=== PATIENT | male | born 1940 | race Caucasian/White ===

== ENCOUNTER 2024-02-13 15:04 | Emergency (ER) | payer OTHER, SELFPAY ==
[2024-02-13 15:21] VITALS: BP 113/76
--- NOTE | 2024-02-13 15:24 | ED.GENMED ---
ED Provider Triage
<Emma Marte PA-C - Last Filed: 02/13/24 18:58>
-
Patient seen by provider in Triage?: Seen in Triage
Attestation: A medical screening examination has been initiated by a qualified medical provider. Based on the assessment performed at this time, it has been determined that an emergent medical condition may exist and the patient has been informed
that further medical evaluation and possible additional diagnostic testing may be needed.
HPI: 83yoM here for chest pain. L lower chest pain x several days. Patient think it's a muscle strain. Hx of CAD s/p PCI.
GENERAL: Alert , in no apparent distress
EYE: No visual abnormalities.
NECK: Trachea midline
ENT: No visible abnormalities.
LUNGS: No acute respiratory distress
NEUROLOGICAL: Alert and oriented
SKIN: Skin intact. No visible changes.
MUSCULOSKELETAL: Moving extremities normally
PSYCH: Normal and appropriate interaction.
This is a medical evaluation conducted in person to initiate diagnostic evaluation and provide initial therapeutics. Please see further documentation by the treating clinician.
Cardiac labs, EKG, and CXR ordered.
History of Present Illness
<Emma Marte PA-C - Last Filed: 02/13/24 18:58>
General
Chief Complaint: Chest Pain
Time Seen by Provider: 02/13/24 18:21
<ALCIDES Coombs - Last Filed: 02/13/24 19:08>
General
Source: patient
Exam Limitations: none
Nursing documentation reviewed up to this point in time: agreed with
History of Present Illness
History of Present Illness:
Patient is an 83-year-old male with past with history of stent, hypertension aortic stenosis hyperlipidemia mitral regurg presents to the ER for evaluation of chest discomfort. Patient reports often over the past several days he has noticed
discomfort /'pressure ' in his lower rib area bilaterally. He works out at the gym and reports 2 days ago he was doing an upper body workout. He denies any trauma. He did not feel injury at that time but symptoms started after the gym. He denies
any shortness of breath. he notices this when he takes a deep breath. He denies any abdominal pain nausea vomiting. In addition he also complains of a lot of anxiety and often has chest pain.
he recently had a Holter monitor on and dropped off at [facility] 's office today. He discussed his s/s and they instructed him to come to the ED.
Patient does note that he does exercise about 4-5 times a week and is not sure breath with exercise.
Patient presents with medical summary from cardiology office it does report patient has a history of chronic chest discomfort.
Review of Systems
<ALCIDES Coombs - Last Filed: 02/13/24 19:08>
Review of Systems
Allergies reviewed?: Yes
All Other Systems: ROS reviewed and negative except as documented in HPI and ROS
Constitutional: Reports no symptoms; Denies fever, fatigue or chills
EENT: Reports no symptoms
Respiratory: Reports other
Cardiac: Denies chest pain, diaphoresis, palpitations or syncope
ABD/GI: Reports no symptoms
: Reports no symptoms
Musculoskeletal: Reports no symptoms
Skin: Reports no symptoms
Neurological: Reports no symptoms
Psychiatric: Reports no symptoms
Phy Exam
<ALCIDES Coombs - Last Filed: 02/13/24 19:08>
General Physical Exam
General Presentation: no apparent distress
General age: appears stated age
General Skin: warm and dry
General Habitus: normal
General Mental: alert
General Hydration: appears well hydrated
Cardiovascular Exam
Cardiovascular Exam: regular rate/rhythm, no murmur and normal peripheral pulses
Pulmonary Exam
Pulmonary Exam: lungs clear and other (Normal inspection to ribs and nontender)
Scores
<ALCIDES Coombs - Last Filed: 02/13/24 19:08>
Heart Score for Chest Pain Patients
STEMI patient?: Not applicable
Course
<Emma Marte PA-C - Last Filed: 02/13/24 18:58>
Orders/Labs/Results
Orders:
Orders
02/13/24 15:06
Electrocardiogram (*1) Urgent
Reason for Study: Chest Pain
EKG- Treatment ONCE
02/13/24 15:26
CR Chest - 2 Views Urgent
Comment:
Reason For Exam: CP
02/13/24 15:40
Complete Blood Count/With Diff Urgent
Comprehensive Metabolic Panel Urgent
Troponin I Urgent
Abnormal Lab Results
02/13/24
15:40
RBC 4.26 L 10^6/uL
(4.70-6.10)
MCH 33.8 H pg
(27.0-31.0)
Absolute Monos (auto) 0.7 H 10^3/uL
(0.1-0.6)
Lymphocytes % 17.9 L %
(20.5-51.1)
Monocytes % 9.9 H %
(1.7-9.3)
BUN 29 H mg/dl
(9-20)
Glucose 100 H mg/dl
(70-99)
02/13/24 15:40
02/13/24 15:40
Vital Signs
Initial and Last Documented VS:
Initial Vital Signs
Temp Pulse Resp BP Pulse Ox
98.3 F 66 18 113/76 98
02/13/24 15:21 02/13/24 15:21 02/13/24 15:21 02/13/24 15:21 02/13/24 15:21
Last Documented Vital Signs
Temp Pulse Resp BP Pulse Ox
98.3 F 66 18 113/76 98
02/13/24 15:21 02/13/24 15:21 02/13/24 15:21 02/13/24 15:21 02/13/24 15:21
<ALCIDES Coombs - Last Filed: 02/13/24 19:08>
Orders/Labs/Results
Orders:
Orders
02/13/24 15:06
Electrocardiogram (*1) Urgent
Reason for Study: Chest Pain
EKG- Treatment ONCE
02/13/24 15:26
CR Chest - 2 Views Urgent
Comment:
Reason For Exam: CP
02/13/24 15:40
Complete Blood Count/With Diff Urgent
Comprehensive Metabolic Panel Urgent
Troponin I Urgent
Abnormal Lab Results
02/13/24
15:40
RBC 4.26 L 10^6/uL
(4.70-6.10)
MCH 33.8 H pg
(27.0-31.0)
Absolute Monos (auto) 0.7 H 10^3/uL
(0.1-0.6)
Lymphocytes % 17.9 L %
(20.5-51.1)
Monocytes % 9.9 H %
(1.7-9.3)
BUN 29 H mg/dl
(9-20)
Glucose 100 H mg/dl
(70-99)
02/13/24 15:40
02/13/24 15:40
Vital Signs
Initial and Last Documented VS:
Initial Vital Signs
Temp Pulse Resp BP Pulse Ox
98.3 F 66 18 113/76 98
02/13/24 15:21 02/13/24 15:21 02/13/24 15:21 02/13/24 15:21 02/13/24 15:21
Last Documented Vital Signs
Temp Pulse Resp BP Pulse Ox
98.3 F 66 18 113/76 98
02/13/24 15:21 02/13/24 15:21 02/13/24 15:21 02/13/24 15:21 02/13/24 15:21
Alcoholic Counselor consulted with Physician
Alcoholic Counselor consulted with physician?: Yes
Name of Physician Consulted: DR Snell
<ALCIDES Coombs - Last Filed: 02/13/24 19:08>
MDM/Problems Addressed
Differential Diagnosis Includes:
Not limited to musculoskeletal pain, less likely PE less likely ACS
MDM/Problems Addressed:
Patient is an 83-year-old male with history of stent and chronic chest discomfort as well presents to the ER for evaluation of what he describes as bilateral rib pressure for the past several days. He does workout at the gym and noticed that this
after doing upper body workout. He dropped off Holter monitor which she had (recommended by the [facility] for palpitations) to his cardiology office and they recommended he come to the ER. Patient presents awake alert no acute distress negative
cardiac troponin EKG is sinus bradycardia with PACs no other changes. Patient reports pain is in the lower rib area worse with deep breath but he is not short of breath. He is nontachycardic.
He does feel that symptoms again started after upper body workout likely musculoskeletal. He is in no acute distress and nontoxic.
Patient is afebrile ,no recent complaints of fevers. his white count is normal his hemoglobin is stable his creatinine is normal his BUN is minimally elevated will have patient hydrate at home and his troponin is negative. Chest x-ray negative.
Case reviewed with ED physician likely musculoskeletal. pt has no complaints of shortness of breath and no clinical findings consistent w/ PE.
will d/c w/ outpt cardiology follow up.
Chronic conditions affecting care:
Cardiac stent anxiety hypertension hyperlipidemia stage III kidney disease
<ALCIDES Coombs - Last Filed: 02/13/24 19:08>
*Radiology
Radiology exam reviewed: radiology read reviewed
*Pulse Oximetry
Patient hypoxic: no
*EKG
Interpretation: normal
Comparison EKG: no changes
Heart Rate: 59
Rate: normal
Rhythm: sinus and other (SR with Pacs )
*Critical Care Note
Total Time (30-74mins, 75-104mins- exclusive of procedures): Not Applicable
ED Attending Note
<Emma Marte PA-C - Last Filed: 02/13/24 18:58>
-
Portions of this chart may have been created with voice recognition software.� Occasional wrong word or��sound alike� substitutions may have occurred due to the inherent limitations of voice recognition software.
Discharge Plan
Departure
Patient Disposition: Home (Routine Discharge)
Date of Disposition: 02/13/24
Time of Disposition: 19:05
Patient with high blood pressure during this ER visit?: No
Condition: Fair
Covid-19: Not Applicable
Discharge Problem:
Chest pain
Instructions: Chest pain
Prescriptions:
No Action
atorvastatin 40 MG tablet
40 mg PO QPM
aspirin 81 MG tablet,delayed release (DR/EC)
81 mg PO DAILY
alprazolam 0.25 MG tablet
0.25 mg PO Q8HPRN PRN (Reason: anxiety)
amlodipine 10 MG tablet
10 mg PO DAILY
lisinopril 5 MG tablet
5 mg PO DAILY
hydrochlorothiazide 25 MG tablet
25 mg PO DAILY
clopidogrel 75 MG tablet
75 mg PO DAILY Qty: 30 3RF
nitroglycerin 0.4 MG tablet, sublingual
0.4 mg sublingual [id number] PRN (Reason: chest pain) Qty: 25 3RF
Referrals:
Jim Mercado MD [Active] -
Puneet Ramos MD [Family Provider] -
Activity Restrictions/Additional Instructions:
As discussed please follow-up with Dr. Mercado as scheduled. Return to the ER if any worsening of symptoms including worsening chest pain. Please increase your water intake as you are mildly dehydrated here in the ER. Call Dr. Mercado office
tomorrow
Interventions
Interventions:
*Risk Screen - Suicide Last Done: 02/13/24 15:24
*General Assessment Last Done: 02/13/24 15:21
*Neglect/Abuse Screening Last Done: 02/13/24 15:21
*ED COVID-19 Vaccine History Last Done: 02/13/24 15:21
Discharge Date and Time
Print Language: GEORGIAN
[2024-02-13 15:48] LABS: % Eosinophils 1.4 % (0-6); % Immature Granulocytes 0.4 % (0-0.5); % Lymphocytes 17.9 % (20.5-51.1); % Monocytes 9.9 % (1.7-9.3); % Neutrophils 69.4 % (42.2-75.2); Absolute Basophils 0.1 10^3/uL (0-0.2); Absolute Eosinophils 0.1 10^3/uL (0-0.7); Absolute Lymphocytes 1.3 10^3/uL (1.2-3.4); Absolute Monocytes 0.7 10^3/uL (0.1-0.6); Absolute Neutrophils 4.9 10^3/uL (1.4-6.5); Hematocrit 39.9 % (39.0-52.0); Hemoglobin 14.4 g/dL (13.0-18.0); Mean Corp Hgb Conc. 36.1 g/dL (33.0-37.0); Mean Corpuscular Hgb 33.8 pg (27.0-31.0); Mean Corpuscular Volume 93.7 fL (80.0-94.0); Nucleated Red Blood Cells % 0 % (-); Platelet Count 210 10^3/uL (130-400); Red Blood Cell Count 4.26 10^6/uL (4.70-6.10); Red Cell Dist. Width 12.8 % (11.5-14.5); White Blood Cell Count 7.1 10^3/uL (4.8-10.8)
[2024-02-13 16:09] LABS: ALT (SGPT) 22 U/L (0-50); AST (SGOT) 30 U/L (17-59); Albumin 4.2 g/dl (3.5-5.0); Alkaline Phosphatase 53 U/L (38-126); Blood Urea Nitrogen 29 mg/dl (9-20); Calcium 9.4 mg/dl (8.4-10.2); Carbon Dioxide 28 mmol/L (22-30); Chloride 104 mmol/L (98-107); Glucose 100 mg/dl (70-99); Potassium 4.7 mmol/L (3.5-5.1); Sodium 142 mmol/L (135-145); Total Bilirubin 1.2 mg/dl (0.2-1.3); eGFR 54.85
[2024-02-13 16:12] LABS: Troponin I < 0.012 ng/ml
[2024-02-13 19:01] VITALS: BP 158/72
== END 2024-02-13 20:11 | disposition home or self-care (01) ==
LOC: EMR 15:04
PROVIDERS: Physician Assistant; EMERGENCY PHYSICIAN Emergency Medicine; FAMILY PHYSICIAN Family Medicine
DX: R07.89 Other chest pain (principal); F41.9 Anxiety disorder, unspecified; I35.0 Nonrheumatic aortic (valve) stenosis; I25.10 Atherosclerotic heart disease of native coronary artery without angina pectoris; E78.5 Hyperlipidemia, unspecified; I12.9 Hypertensive chronic kidney disease with stage 1 through stage 4 chronic kidney disease, or unspecified chronic kidney disease; N18.30 Chronic kidney disease, stage 3 unspecified; Z95.5 Presence of coronary angioplasty implant and graft; Z79.82 Long term (current) use of aspirin; Z79.02 Long term (current) use of antithrombotics/antiplatelets
CPT/HCPCS: 99283; 71046; 80053; 84484; 85025; 93005